=== PATIENT | female | born 1940 | race African-American/Black ===

== ENCOUNTER 2018-04-15 20:11 | Emergency (ER) | payer MEDICARE, OTHER ==
[~2018-04-15] VITALS: Ht 172.7 cm; Wt 72.6 kg
[2018-04-15] MEDS ORDERED: NIFEDIPINE ER60 M3 ORAL (20:22)
[2018-04-15] MEDS ORDERED: LOSARTAN POTAS100 MG ORAL (20:22)
[2018-04-15] MEDS ORDERED: IBUPROFEN600 MG ORAL (20:46)
[2018-04-15] MEDS ORDERED: BACTRIM DS TAB1 EAC1 ORAL (20:46)
--- NOTE | 2018-04-15 20:51 | Emergency Room Report ---
History of Present Illness General Chief Complaint: General Complaint Source: Patient Present Illness HPI Patient presents with family with reports of tender palpable mass to the right neck/jaw area Patient reports that she had come out of [place] few hours ago and she had acute discomfort to the right lower jaw area And after she twisted area she felt a palpable mass and comes in for further eval Denies any fevers or chills denies any chest pain or shortness of breath Denies any posterior neck pain denies any vomiting or diarrhea patient is here from [place] Allergies: Coded Allergies: PENICILLINS (Verified Allergy, Severe, 04/15/18) HIVES Patient History Past Medical History: see triage record Pertinent Family History: none Reviewed Nursing Documentation: PMH: Agreed; PSxH: Agreed Nursing Documentation-PMH Hx Hypertension: Yes Review of Systems All Other Systems: negative except mentioned in HPI Physical Exam Vital Signs Date Time Temp Pulse Resp B/P (MAP) Pulse Ox O2 Delivery O2 Flow Rate FiO2 04/15/18 20:15 98.2 91 16 150/93 94 Room Air 98.2 Sp02 EP Interpretation: reviewed, normal General Appearance: well appearing, no apparent distress Head: normocephalic, atraumatic Eyes: bilateral eye PERRL, bilateral eye EOMI ENT: normal pharynx, no angioedema Neck: other - In the region of the right submental region, tracking back to the anterior aspect of the SCM, there is a palpable mass which is somewhat tender to palpation approximately 2 x 2 centimeters, Respiratory: lungs clear, normal breath sounds Cardiovascular #1: regular rate, rhythm Gastrointestinal: non tender, soft Genitourinary: no CVA tenderness Musculoskeletal: normal inspection Neurologic: alert, oriented x3, responsive Skin: normal color, no rash Lymphatic: other - Palpable mass possible submental lymphadenopathy Medical Decision Making Diagnostic Impression: Primary Impression: neck mass ER Course Given the presentation the palpable region and the discomfort Given the lack of clarity of the specifics of the diagnosis multiple differentials and consideration including but not limited to carcinoma, abscess , lymphadenopathy Given the patient's age and the presentation blood work and imaging is required At this time patient is refusing further workup She understands that lack of diagnosis of this can lead to worsening symptoms and possible . Patient's family is in the room at the time of discussion and patient reports that she will be following with her primary physician tomorrow Last Vital Signs Date Time Temp Pulse Resp B/P (MAP) Pulse Ox O2 Delivery O2 Flow Rate FiO2 04/15/18 20:15 98.2 91 16 150/93 94 Room Air 98.2 Status: unchanged Disposition: AGAINST MEDICAL ADVICE Condition: Unknown Scripts Ibuprofen* (MOTRIN*) 600 Mg Tablet 600 MG ORAL Q8H PRN for For Pain, #20 TAB 0 Refills Prov: Doris Layton DO 04/15/18 Trimethoprim/Sulfamethoxazole 160/800* (BACTRIM DS TABLET*) 1 Each Tablet 1 TAB ORAL Q12H, #14 TAB 0 Refills Prov: Dorsi Layton DO 04/15/18 Additional Instructions: Please refer to the AMA form for full specifics. However the palpable mass in the right neck /lower jaw area requires emergency examination blood work and imaging. Without these tests diagnoses such as cancer, abscess or other pathology can be missed. At this time you have decided to leave AGAINST MEDICAL ADVICE without these examinations. Doris Layton DO Apr 15, 2018 20:51
[2018-04-15 20:52] VITALS: BP 150/93
== END 2018-04-15 21:00 | disposition left against medical advice (07) ==
LOC: EMR 21:00
DX: R22.1 Localized swelling, mass and lump, neck (principal); I10 Essential (primary) hypertension; Z88.0 Allergy status to penicillin; Z53.21 Procedure and treatment not carried out due to patient leaving prior to being seen by health care provider
CPT/HCPCS: 99283